=== PATIENT | female | born 1965 | race Caucasian/White ===

== ENCOUNTER 2021-05-13 04:21 | Day surgery (SDC) | payer OTHER ==
[2021-05-11 13:05] VITALS: BMI 33.2
[~2021-05-13 04:21] MED LIST: BUPIVACAINE HCL/PF 0.5% (5MG/ML) 10 ML VIAL IJ ONE; BUPIVACAINE HCL/PF 0.75% 10 ML VIAL NR ONE; IOHEXOL 180 MG/1 ML ML IJ ONE; LIDOCAINE HCL 1% PRESERVATIVE FREE - 30ML VIAL IJ ONE
[2021-05-13] MEDS ORDERED: BUPIVACAINE HCL/PF 0.75% 10 ML VIAL ONE (07:26)
[2021-05-13] MEDS ORDERED: LIDOCAINE HCL/PF 1% SDV 5ML VIAL ONE (07:26)
[2021-05-13] MEDS ORDERED: LIDOCAINE HCL 1% PRESERVATIVE FREE - 30ML VIAL IJ ONE ×2 (11:15→11:17)
[2021-05-13] MEDS ORDERED: IOHEXOL 180 MG/1 ML ML IJ ONE (11:18)
[2021-05-13] MEDS ORDERED: BUPIVACAINE HCL/PF 0.75% 10 ML VIAL NR ONE (11:21)
[2021-05-13 11:52] VITALS: BP 147/90; PULSE 74; TEMP 97.1
== END 2021-05-13 11:45 | disposition home or self-care (01) ==
LOC: JASU-SURG 04:21
PROVIDERS: ATTEND Pain Medicine Pain Medicine
PROC: 3E0T33Z Introduction of Anti-inflammatory into Peripheral Nerves and Plexi, Percutaneous Approach (ICD-10-PCS; 2021-05-13)
PROC: BR16YZZ Fluoroscopy of Lumbar Facet Joint(s) using Other Contrast (ICD-10-PCS; 2021-05-13)
PROC: 3E0T3BZ Introduction of Anesthetic Agent into Peripheral Nerves and Plexi, Percutaneous Approach (ICD-10-PCS; principal; 2021-05-13 10:30)
DX: M47.816 Spondylosis without myelopathy or radiculopathy, lumbar region (principal)
CPT/HCPCS: 76000-TC-FY

== ENCOUNTER 2024-09-15 12:20 | Inpatient (IN) | payer OTHER ==
[2024-09-15] MEDS ORDERED: ALBUTEROL SO4 2.5/IPRATROPIUM 0.5 INH SOL 3 ML VIAL.NEB. NEB ONE ×3 (14:02→19:23)
[2024-09-15] MEDS: ALBUTEROL SO4 2.5/IPRATROPIUM 0.5 INH SOL 3 ML VIAL.NEB. NEB ONE (14:07)
[2024-09-15] MEDS: ALBUTEROL SO4 2.5/IPRATROPIUM 0.5 INH SOL 3 ML VIAL.NEB. NEB SCH ×2 (14:15→19:27)
[2024-09-15] MEDS ORDERED: ACETAMINOPHEN INJECTION 100 ML ONE (14:23)
[2024-09-15] MEDS ORDERED: ONDANSETRON 4 MG/2 ML VIAL ONE (14:24)
[2024-09-15 14:43] LABS: BASO % 0.4 % (0-2.0); EOS % 0.8 % (0-4.5); HEMATOCRIT 41.1 % (32.4-45.2); HEMOGLOBIN 13.9 GM/dL (10.7-15.3); LYMPH % 17.5 % (8-40); MCHC 33.9 g/dl (32.0-36.0); MEAN CELL VOLUME 88.6 fl (80-96); MEAN PLT VOLUME 6.3 fl (7.5-11.1); MONO % 8.7 % (3.8-10.2); NEUT % 72.6 % (42.8-82.8); PLATELET COUNT 220 10^3/uL (134-434); RBC 4.64 M/mm3 (3.60-5.2); RDW 13.3 % (11.6-15.6); WHITE BLOOD COUNT 8.5 K/mm3 (4.0-10.0)
[2024-09-15] MEDS: ACETAMINOPHEN 1000 MG/100 ML BAG IVPB ONE (14:51)
[2024-09-15] MEDS: ACETAMINOPHEN 500 MG TABLET (FP) PO ONE (14:52)
[2024-09-15] MEDS: ONDANSETRON 4 MG/2 ML VIAL IVPUSH ONE (14:53)
[2024-09-15] MEDS ORDERED: AZITHROMYCIN IVPB 500 MG/250 ML BAG IVPB ONE (14:59)
[2024-09-15] MEDS ORDERED: CEFTRIAXONE 1 G/50 ML PREMIX 50 ML IVPB ONE (14:59)
[2024-09-15] MEDS ORDERED: methylPREDNISolone NA SUCC 125 MG/2 ML VIAL ONE (14:59)
[2024-09-15 15:15] LABS: POTASSIUM 4.1 mmol/L (3.5-5.1)
[2024-09-15] MEDS: AZITHROMYCIN IVPB 500 MG in DEXTROSE 5%-WATER - 250 ML IVPB ONE (15:17)
[2024-09-15] MEDS: methylPREDNISolone NA SUCC 125 MG/2 ML VIAL IVPUSH ONE (15:17)
[2024-09-15] MEDS: CEFTRIAXONE 1 GM in DEXTROSE 5%-WATER - 100 ML IVPB ONE (15:17)
[2024-09-15 15:18] LABS: ALBUMIN 3.9 g/dl (3.4-5.0); BLOOD UREA NITROGEN 8.5 mg/dL (7-18); CALCIUM 9.1 mg/dL (8.5-10.1)
[2024-09-15 15:22] LABS: BILIRUBIN,TOTAL 0.4 mg/dL (0.2-1); CREATININE 0.5 mg/dL (0.55-1.3)
[2024-09-15] MEDS ORDERED: DOXYCYCLINE HYCLATE 100 MG VIAL ONE (22:11)
[2024-09-15] MEDS ORDERED: HEPARIN NA (PORCINE) 5,000 UNITS/ML 1ML VIAL ONE (22:11)
[2024-09-15] MEDS ORDERED: ATORVASTATIN CA 20 MG TABLET (FP) ONE (22:11)
[2024-09-15] MEDS ORDERED: hydrALAZINE HCL 25 MG TABLET (FP) ONE (22:11)
[2024-09-15] MEDS: HEPARIN NA (PORCINE) 5,000 UNITS/ML 1ML VIAL SQ SCH (22:16)
[2024-09-15] MEDS: hydrALAZINE HCL 25 MG TABLET (FP) PO SCH (22:16)
[2024-09-15] MEDS: ATORVASTATIN CA 20 MG TABLET (FP) PO SCH (22:16)
[2024-09-15] MEDS: DOXYCYCLINE INJECTION 100 MG in DEXTROSE 5%-WATER 100 ML IVPB SCH (22:25)
[2024-09-15] MEDS: OLANZapine 10 MG TABLET PO SCH (22:31)
[2024-09-15] MEDS: ZIPRASIDONE 40 MG CAPSULE PO SCH (22:31)
[2024-09-16] MEDS ORDERED: ALBUTEROL SO4 2.5/IPRATROPIUM 0.5 INH SOL 3 ML VIAL.NEB. NEB ONE ×3 (04:51→12:50)
[2024-09-16] MEDS: ALBUTEROL SO4 2.5/IPRATROPIUM 0.5 INH SOL 3 ML VIAL.NEB. NEB PRN (04:55)
[2024-09-16] MEDS ORDERED: methylPREDNISolone NA SUCC 40 MG/1 ML VIAL ONE ×3 (05:33→11:21)
[2024-09-16] MEDS: methylPREDNISolone NA SUCC 40 MG/1 ML VIAL IVPUSH ONE (05:37)
[2024-09-16] MEDS ORDERED: hydrALAZINE HCL 25 MG TABLET (FP) ONE (06:06)
[2024-09-16 07:03] LABS: BASO % 0.2 % (0-2.0); HEMATOCRIT 41.3 % (32.4-45.2); HEMOGLOBIN 13.5 GM/dL (10.7-15.3); MCH 29.4 pg (25.7-33.7); MCHC 32.7 g/dl (32.0-36.0); MEAN CELL VOLUME 90.1 fl (80-96); MEAN PLT VOLUME 6.8 fl (7.5-11.1); NEUT % 75.8 % (42.8-82.8); PLATELET COUNT 248 10^3/uL (134-434); RBC 4.59 M/mm3 (3.60-5.2); RDW 13.1 % (11.6-15.6); WHITE BLOOD COUNT 8.4 K/mm3 (4.0-10.0)
[2024-09-16] MEDS ORDERED: LEVOTHYROXINE NA 25 MCG TABLET (FP) ONE (08:02)
[2024-09-16] MEDS ORDERED: clonazePAM 0.5 MG TABLET ONE (08:02)
[2024-09-16] MEDS: clonazePAM 0.5 MG TABLET PO SCH (08:03)
[2024-09-16] MEDS: LEVOTHYROXINE NA 25 MCG TABLET (FP) PO SCH (08:04)
[2024-09-16 08:12] LABS: POTASSIUM 4.1 mmol/L (3.5-5.1)
[2024-09-16 08:15] LABS: CALCIUM 8.8 mg/dL (8.5-10.1)
[2024-09-16 08:16] LABS: BLOOD UREA NITROGEN 13.4 mg/dL (7-18)
[2024-09-16 08:19] LABS: CREATININE 0.5 mg/dL (0.55-1.3)
[2024-09-16] MEDS ORDERED: methylPREDNISolone NA SUCC 40 MG/1 ML VIAL IVPUSH SCH (10:00)
[2024-09-16] MEDS ORDERED: LEVOTHYROXINE NA 25 MCG TABLET (FP) PO SCH (10:00)
[2024-09-16] MEDS: methylPREDNISolone NA SUCC 40 MG/1 ML VIAL IVPUSH SCH (11:22)
[2024-09-16] MEDS: ASPIRIN 81 MG CHEWABLE TABLETS PO SCH (11:24)
[2024-09-16] MEDS: amLODIPine BESYLATE 10 MG TABLET (FP) PO SCH (11:24)
[2024-09-16] MEDS: SERTRALINE HCL 50 MG TABLET (FP) PO SCH (11:24)
[2024-09-16] MEDS: BICTEGRAV/EMTRICIT/TENOFOV (BIKTARVY) 50-200-25 MG TABLET PO SCH (11:24)
[2024-09-16] MEDS ORDERED: DOXYCYCLINE HYCLATE 100 MG VIAL ONE (12:50)
[2024-09-16 15:21] VITALS: BMI 36.6
[2024-09-16] MEDS: ACETAMINOPHEN 500 MG TABLET (FP) PO PRN (16:17)
[2024-09-17 09:59] LABS: HEMOGLOBIN 14.9 GM/dL (10.7-15.3); LYMPH % 22.7 % (8-40); MCH 30.2 pg (25.7-33.7); MCHC 33.8 g/dl (32.0-36.0); MEAN CELL VOLUME 89.3 fl (80-96); MEAN PLT VOLUME 6.5 fl (7.5-11.1); MONO % 6.9 % (3.8-10.2); NEUT % 70.4 % (42.8-82.8); PLATELET COUNT 271 10^3/uL (134-434); RBC 4.93 M/mm3 (3.60-5.2); RDW 13.3 % (11.6-15.6); WHITE BLOOD COUNT 8.5 K/mm3 (4.0-10.0)
[2024-09-17 10:11] LABS: POTASSIUM 4.1 mmol/L (3.5-5.1)
[2024-09-17 10:13] LABS: ALBUMIN 3.9 g/dl (3.4-5.0); CALCIUM 9.8 mg/dL (8.5-10.1)
[2024-09-17 10:14] LABS: BLOOD UREA NITROGEN 18.5 mg/dL (7-18); MAGNESIUM 2.2 mg/dL (1.8-2.4)
[2024-09-17 10:17] LABS: CREATININE 0.7 mg/dL (0.55-1.3)
[2024-09-17 10:18] LABS: BILIRUBIN,TOTAL 0.4 mg/dL (0.2-1); TOT PROT 7.5 g/dl (6.4-8.2)
[2024-09-17] MEDS ORDERED: lamoTRIgine 100 MG TABLET PO SCH (10:28)
[2024-09-17] MEDS: lamoTRIgine 100 MG TABLET PO SCH (10:53)
[2024-09-17] MEDS: NICOTINE 14 MG/24 HOURS TOPICAL PATCH TD SCH (18:10)
[2024-09-17] MEDS: BUDESONIDE/FORMETEROL FUMARATE 160/4.5 mcg INHALER IH SCH (21:55)
[2024-09-18 07:42] LABS: BASO % 0.1 % (0-2.0); HEMATOCRIT 41.6 % (32.4-45.2); HEMOGLOBIN 13.7 GM/dL (10.7-15.3); LYMPH % 21.6 % (8-40); MCH 29.6 pg (25.7-33.7); MCHC 32.9 g/dl (32.0-36.0); MEAN PLT VOLUME 6.5 fl (7.5-11.1); MONO % 6.7 % (3.8-10.2); NEUT % 71.6 % (42.8-82.8); PLATELET COUNT 260 10^3/uL (134-434); RBC 4.62 M/mm3 (3.60-5.2); RDW 13.2 % (11.6-15.6); WHITE BLOOD COUNT 9.6 K/mm3 (4.0-10.0)
[2024-09-18 08:06] LABS: POTASSIUM 4.3 mmol/L (3.5-5.1)
[2024-09-18 08:32] LABS: CALCIUM 9.3 mg/dL (8.5-10.1)
[2024-09-18 08:33] LABS: ALBUMIN 3.5 g/dl (3.4-5.0); BLOOD UREA NITROGEN 23.7 mg/dL (7-18); MAGNESIUM 2.2 mg/dL (1.8-2.4)
[2024-09-18 08:36] LABS: CREATININE 0.5 mg/dL (0.55-1.3)
[2024-09-18 08:37] LABS: BILIRUBIN,TOTAL 0.3 mg/dL (0.2-1); TOT PROT 6.7 g/dl (6.4-8.2)
[2024-09-18] MEDS: methylPREDNISolone NA SUCC 40 MG/1 ML VIAL IVPUSH SCH (11:46)
[2024-09-18] MEDS ORDERED: CEFTRIAXONE 1 GM in DEXTROSE 5%-WATER - 50 ML IVPB SCH (15:30)
[2024-09-18] MEDS: PIPERACILLIN/TAZOB 3.375 GM 3.375 GM in DEXTROSE 5%-WATER - 50 ML IVPB ONE (16:32)
[2024-09-18] MEDS: CEFTRIAXONE 1 G/50 ML PREMIX 50 ML IVPB SCH (16:35)
[2024-09-18] MEDS: DOXYCYCLINE INJECTION 100 MG in DEXTROSE 5%-WATER 100 ML IVPB SCH (21:43)
[2024-09-18] MEDS: clonazePAM 0.5 MG TABLET PO SCH (21:44)
[2024-09-18] MEDS: PANTOPRAZOLE 20 MG TABLET PO ONE (21:48)
[2024-09-19 08:43] LABS: BASO % 0.2 % (0-2.0); HEMATOCRIT 41.3 % (32.4-45.2); HEMOGLOBIN 13.5 GM/dL (10.7-15.3); LYMPH % 20.3 % (8-40); MCH 29.5 pg (25.7-33.7); MCHC 32.7 g/dl (32.0-36.0); MEAN PLT VOLUME 6.5 fl (7.5-11.1); MONO % 5.6 % (3.8-10.2); NEUT % 73.9 % (42.8-82.8); PLATELET COUNT 286 10^3/uL (134-434); RBC 4.58 M/mm3 (3.60-5.2); WHITE BLOOD COUNT 9.4 K/mm3 (4.0-10.0)
[2024-09-19 08:56] LABS: POTASSIUM 4.2 mmol/L (3.5-5.1)
[2024-09-19 09:05] LABS: CALCIUM 9.5 mg/dL (8.5-10.1); CREATININE 0.4 mg/dL (0.55-1.3)
[2024-09-19 09:06] LABS: BLOOD UREA NITROGEN 23.4 mg/dL (7-18); MAGNESIUM 2.4 mg/dL (1.8-2.4)
[2024-09-19 09:07] LABS: ALBUMIN 3.5 g/dl (3.4-5.0); BILIRUBIN,TOTAL 0.3 mg/dL (0.2-1); TOT PROT 6.4 g/dl (6.4-8.2)
[2024-09-20 09:11] LABS: POTASSIUM 3.9 mmol/L (3.5-5.1)
[2024-09-20 09:14] LABS: BASO % 0.1 % (0-2.0); HEMATOCRIT 43.8 % (32.4-45.2); HEMOGLOBIN 13.8 GM/dL (10.7-15.3); MCH 28.4 pg (25.7-33.7); MCHC 31.5 g/dl (32.0-36.0); MEAN CELL VOLUME 90.2 fl (80-96); MEAN PLT VOLUME 6.6 fl (7.5-11.1); MONO % 3.9 % (3.8-10.2); PLATELET COUNT 327 10^3/uL (134-434); RBC 4.86 M/mm3 (3.60-5.2); RDW 13.2 % (11.6-15.6); WHITE BLOOD COUNT 9.9 K/mm3 (4.0-10.0)
[2024-09-20 09:21] LABS: CALCIUM 9.5 mg/dL (8.5-10.1)
[2024-09-20 09:22] LABS: ALBUMIN 3.5 g/dl (3.4-5.0); BLOOD UREA NITROGEN 22.1 mg/dL (7-18)
[2024-09-20 09:23] LABS: MAGNESIUM 2.2 mg/dL (1.8-2.4)
[2024-09-20 09:30] LABS: CREATININE 0.6 mg/dL (0.55-1.3)
[2024-09-20 09:31] LABS: BILIRUBIN,TOTAL 0.6 mg/dL (0.2-1)
[2024-09-20 09:32] LABS: TOT PROT 6.8 g/dl (6.4-8.2)
[2024-09-20] MEDS: methylPREDNISolone NA SUCC 40 MG/1 ML VIAL IVPUSH SCH (18:42)
[2024-09-20] MEDS: BENZOCAINE/MENTH/CETYLPYRD CL 1 EACH LOZENGE MM PRN (21:32)
[2024-09-21 08:12] LABS: POTASSIUM 4.3 mmol/L (3.5-5.1)
[2024-09-21 08:18] LABS: ALBUMIN 3.4 g/dl (3.4-5.0); BLOOD UREA NITROGEN 22.1 mg/dL (7-18); CALCIUM 9.3 mg/dL (8.5-10.1); MAGNESIUM 2.4 mg/dL (1.8-2.4)
[2024-09-21 08:22] LABS: CREATININE 0.5 mg/dL (0.55-1.3)
[2024-09-21 08:23] LABS: BILIRUBIN,TOTAL 0.6 mg/dL (0.2-1); TOT PROT 6.4 g/dl (6.4-8.2)
[2024-09-21 09:25] LABS: HEMOGLOBIN 13.8 GM/dL (10.7-15.3); MCH 29.4 pg (25.7-33.7); MEAN CELL VOLUME 89.1 fl (80-96); MEAN PLT VOLUME 6.9 fl (7.5-11.1); PLATELET COUNT 311 10^3/uL (134-434); RBC 4.71 M/mm3 (3.60-5.2); RDW 13.4 % (11.6-15.6); WHITE BLOOD COUNT 10.5 K/mm3 (4.0-10.0)
[2024-09-21 11:15] LABS: ANISOCYTOSIS 0; HELMET CELLS 0; HOWELL-JOLLY BODIES 0; MACROCYTOSIS 0; OVALOCYTE 0; ROULEAU 0; SICKELED CELLS 0; TARGET CELLS 0; TEAR DROP CELLS 0; TOXIC GRANULATION 0
[2024-09-21] MEDS: FLUTICASONE PROP 0.05% 16 GM NASAL SPRAY NS SCH (12:08)
[2024-09-21] MEDS ORDERED: DOXYCYCLINE HYCLATE 100 MG VIAL ONE (21:05)
[2024-09-22] MEDS: methylPREDNISolone NA SUCC 40 MG/1 ML VIAL IVPUSH SCH ×2 (11:55)
[2024-09-23 06:38] VITALS: BP 140/93; PULSE 63; TEMP 97.7
[2024-09-23 10:45] LABS: BASO % 0.1 % (0-2.0); EOS % 0.1 % (0-4.5); HEMATOCRIT 45.9 % (32.4-45.2); HEMOGLOBIN 14.7 GM/dL (10.7-15.3); LYMPH % 24.9 % (8-40); MCHC 32.1 g/dl (32.0-36.0); MEAN CELL VOLUME 90.4 fl (80-96); MEAN PLT VOLUME 6.6 fl (7.5-11.1); MONO % 6.3 % (3.8-10.2); NEUT % 68.6 % (42.8-82.8); PLATELET COUNT 348 10^3/uL (134-434); RBC 5.07 M/mm3 (3.60-5.2); RDW 13.5 % (11.6-15.6); WHITE BLOOD COUNT 13.9 K/mm3 (4.0-10.0)
[2024-09-23 10:58] LABS: POTASSIUM 3.9 mmol/L (3.5-5.1)
[2024-09-23 11:00] LABS: BLOOD UREA NITROGEN 25.7 mg/dL (7-18); CALCIUM 9.1 mg/dL (8.5-10.1)
[2024-09-23 11:04] LABS: CREATININE 0.4 mg/dL (0.55-1.3)
[2024-09-23] MEDS: predniSONE 20 MG TABLET (UD) PO SCH (11:26)
[2024-09-23 12:44] LABS: ANISOCYTOSIS 0; MACROCYTOSIS 0
[2024-09-23 14:14] VITALS: RESP 18
== END 2024-09-23 14:00 | disposition home or self-care (01) | DRG 138 ==
LOC: JER 12:20 → JERBED 14:53 → J7W 09-16 14:45 → J5S 09-21 15:28
PROVIDERS: ADMIT Internal Medicine; ATTEND Physician Assistant
DX: J12.1 Respiratory syncytial virus pneumonia (principal); J44.0 Chronic obstructive pulmonary disease with (acute) lower respiratory infection; J44.1 Chronic obstructive pulmonary disease with (acute) exacerbation; E03.9 Hypothyroidism, unspecified; E78.5 Hyperlipidemia, unspecified; I10 Essential (primary) hypertension; J98.01 Acute bronchospasm; R09.02 Hypoxemia; Z21 Asymptomatic human immunodeficiency virus [HIV] infection status; J18.9 Pneumonia, unspecified organism; F17.210 Nicotine dependence, cigarettes, uncomplicated; F41.8 Other specified anxiety disorders
CPT/HCPCS: 0241U-QW; 36415; 71045-TC-FY; 71250-TC; 80048; 80053; 83615; 83690; 83735; 84484; 85025; 93005; 93010; 94010; 94640; 94761; 97116-GP; 97162-GP; 99285-25; J0131; J1644